=== PATIENT | female | born 1980 | race Caucasian/White ===

== ENCOUNTER 2021-02-08 23:34 | Emergency (ER) | payer SELFPAY ==
[~2021-02-08] VITALS: Ht 170.2 cm; Wt 73.5 kg
[2021-02-08 23:54] VITALS: BP 132/69
[2021-02-09] MEDS ORDERED: FLUORESCEIN SODIUM OPHTH 1 EA STRIP ONE (00:26)
[2021-02-09] MEDS ORDERED: TETRACAINE HCL 2% OPHTHALIC 30 ML BOTTLE EACHEYE ONE (00:30)
[2021-02-09] MEDS ORDERED: FLUORESCEIN SODIUM OPHTH 1 EA STRIP OP ONE (00:30)
[2021-02-09] MEDS ORDERED: ERYT3.5O9 EACHEYE (01:17)
== END 2021-02-09 01:39 | disposition home or self-care (01) ==
LOC: ER 23:37
DX: H10.9 Unspecified conjunctivitis (principal); Z79.2 Long term (current) use of antibiotics

== ENCOUNTER 2021-04-19 20:53 | Inpatient (IN) | payer MEDICAID, OTHER ==
[~2021-04-19] VITALS: Ht 170.2 cm; Wt 83.9 kg
[~2021-04-19 20:53] MED LIST: ERYT3.5O9 EACHEYE
--- NOTE | 2021-04-19 21:03 | NUR ---
PT AOX4. BIBRA FROM HOME C/O DIZZY X2 DAYS. PLACED IN BED 11 ON MONITOR AND PULSE OX. VSS. VOMITTED ARMED SECURITY PROFESSIONAL.
[2021-04-19] MEDS ORDERED: ONDANSETRON HCL/PF 4 MG/2 ML VIAL ONE (21:26)
[2021-04-19] MEDS ORDERED: IV NS 0.9% 1,000 ML BAG IV ONE (21:30)
[2021-04-19] MEDS ORDERED: MECLIZINE HCL 12.5 MG TABLET PO ONE (21:30)
[2021-04-19] MEDS ORDERED: ONDANSETRON HCL/PF 4 MG/2 ML VIAL IVP ONE (21:30)
[2021-04-19 21:36] LABS: BASOPHILS # (AUTO) 0.1 K/uL (0.0-0.2); BASOPHILS % (AUTO) 0.7 % (0.0-2.0); EOSINOPHILS % (AUTO) 0.4 % (0.0-6.0); HEMATOCRIT 39 % (33-45); HEMOGLOBIN 12.9 g/dL (11.5-14.8); LYMPHOCYTES % (AUTO) 21.7 % (20.0-44.0); MEAN CORPUSCULAR HGB CONC 34 g/dl (31.0-36.0); MEAN CORPUSCULAR VOLUME 86 fL (82-100); MONOCYTES # (AUTO) 0.5 K/uL (0.1-1.30); MONOCYTES % (AUTO) 5.6 % (2.0-12.0); NEUTROPHILS # (AUTO) 6.6 K/uL (1.8-8.9); NEUTROPHILS % (AUTO) 71.6 % (43.0-81.0); PLATELET COUNT (AUTO) 405 K/uL (150-450); RED BLOOD CELL COUNT(AUTO) 4.47 MIL/uL (4.0-5.2); WHITE BLOOD COUNT (AUTO) 9.2 K/uL (4.3-11.0)
[2021-04-19] MEDS ORDERED: MECLIZINE HCL 25 MG TABLET ONE (21:48)
[2021-04-19 21:56] LABS: CARBON DIOXIDE 24 mmol/L (21-32); CHLORIDE 100 mmol/L (98-107); CREATININE 0.7 mg/dL (0.6-1.3); GLUCOSE 122 mg/dL (74-106); POTASSIUM 3.6 mmol/L (3.5-5.1); SODIUM SERUM 131 mmol/L (136-145); UREA NITROGEN, BLOOD 17 mg/dL (7-18)
[2021-04-19] MEDS ORDERED: LORAZEPAM INJ 2 MG/ML VIAL IV ONE (23:00)
[2021-04-19] MEDS ORDERED: LORAZEPAM INJ 2 MG/ML VIAL ONE (23:06)
--- NOTE | 2021-04-19 23:47 | NUR ---
MRSA SWAB COLLECTED AND SENT TO LAB. PATIENT'S BELONGINGS LIST DONE.
[2021-04-20] MEDS ORDERED: Z GUARD REMEDY 4 OZ OINT TP PRN (00:30)
[2021-04-20] MEDS ORDERED: MAG HYDROX/AL HYDROX/SIMETH 30 ML UDC PO PRN (00:30)
[2021-04-20] MEDS ORDERED: MAGNESIUM HYDROXIDE 30 ML UDC PO PRN (00:30)
[2021-04-20] MEDS ORDERED: ACETAMINOPHEN 325 MG TABLET PO PRN (00:30)
[2021-04-20] MEDS ORDERED: MECLIZINE HCL 12.5 MG TABLET PO PRN (01:00)
--- NOTE | 2021-04-20 01:45 | NUR ---
REPORT GIVEN TO SHIRA AGARWAL FOR EMMANUEL
[2021-04-20 02:00] VITALS: BP 109/62
--- NOTE | 2021-04-20 02:00 | NUR ---
RN NOTE RECEIVED REPORT FROM STEFANO MARKHAM. RECEIVED A 40 YEAR OLD FEMALE FROM ER. PATIENT IS ALERT AND ORIENTED X4. ABLE TO MAKE NEEDS KNOWN. BREATHING EVEN AND UNLABORED. DENIES FEELING SOB AT THIS TIME, TOLERATING ROOM AIR AT 100 PERCENT OXYGEN SATURATION. DENIES CHEST PAIN. MAIN COMPLAINT IS DIZZINESS WHEN MOVING AROUND. DENIES FEELING NAUSEA. SKIN WARM AND DRY. NOTED WITH LEFT AC 20 G. FLUSHED WITH NS, NO INFILTRATION. SKIN ASSESSMENT DONE. DENIES PAIN. ABLE TO AMBULATE WITH ONE PERSON ASSISTANCE. NO ATAXIA NOTED. NON-SLIP SOCKS ON. PROVIDED FLUIDS FOR HYDRATION, OFFERED SNACKS. BED LOW, IN LOCKED POSITION, CALL LIGHT WITHIN REACH.
[2021-04-20] MEDS: IV NS 0.9% 1,000 ML IV PRN ×2 (02:08→14:18)
[2021-04-20 04:00] VITALS: BP 110/72
--- NOTE | 2021-04-20 06:08 | NUR ---
RN NOTE NO SIGNIFICANT CHANGES, PATIENT REMAINED STABLE. EPISODES OF DIZZINESS WHEN TURNING AND REPOSITIONING. ASSISTED TO THE RESTROOM TO URINATE UPON ADMISSION. PATIENT REMAINED ASLEEP SINCE THEN. NO COMPLAINTS OF PAIN. TOLERATED PO SNACKS. ALL NEEDS ATTENDED. KEPT CLEAN AND DRY. CALL LIGHT WITHIN REACH.
--- NOTE | 2021-04-20 07:55 | NUR ---
RN OPENING NOTES PATIENT AWAKE IN BED RESTING, A/O X4. NO S/S OF PAIN NOTED AT THIS TIME. PATIENT ON ROOM AIR, NO DISTRESS OR SHORTNESS OF BREATH. IV ACCESS RAC #20G INTACT, PATENT AND FLUSHING WELL. FALL AND SAFETY MEASURES IN PLACE, BED ALARM ON, BED IN LOW AND LOCK POSITION, CALL LIGHT AND TABLE WITHIN EASY REACH, SIDE RAILS UP X2. WILL CONTINUE TO MONITOR.
[2021-04-20 08:00] VITALS: BP 102/64
[2021-04-20] MEDS: PANTOPRAZOLE 40 MG VIAL IV SCH (08:58)
[2021-04-20] MEDS ORDERED: ERYTHROMYCIN BASE OPHTH 3.5 GM TUBE EACHEYE SCH (09:00)
[2021-04-20 16:00] VITALS: BP 117/68
--- NOTE | 2021-04-20 18:55 | NUR ---
RN CLOSING NOTES PATIENT AWAKE IN BED RESTING, A/O X4. NO S/S OF PAIN NOTED AT THIS TIME. PATIENT ON ROOM AIR, NO DISTRESS OR SHORTNESS OF BREATH. IV ACCESS LAC #20G INTACT, PATENT AND FLUSHING WELL. FALL AND SAFETY MEASURES IN PLACE, BED ALARM ON, BED IN LOW AND LOCK POSITION, CALL LIGHT AND TABLE WITHIN EASY REACH, SIDE RAILS UP X2. WILL ENDORSE TO HOSTESS HOST.
[2021-04-20 20:00] VITALS: BP 106/65
--- NOTE | 2021-04-20 20:00 | NUR ---
RN NOTE RECEIVED PT IN BED, RESTING, ALERT AND ORIENTED X4. DENIES ANY DIZZINESS, PAIN OR SOB AT THIS TIME. NS RUNNING AT 75ML/HR. IV SITE ON LAC PATENT AND INTACT. ALL SAFETY MEASURES MAINTAINED. CALL LIGHT WITHIN REACH, WILL CONTINUE TO MONITOR.
--- NOTE | 2021-04-21 01:08 | NUR ---
RN NOTE PT SLEEPING, AROUSES EASILY. MILD DIZZINESS NOTED, OFFERED MECLEZINE, PT REFUSED. WILL CONTINUE TO MONITOR.
[2021-04-21] MEDS: IV NS 0.9% 1,000 ML IV PRN ×2 (03:19→15:44)
[2021-04-21 04:00] VITALS: BP 106/62
--- NOTE | 2021-04-21 06:59 | NUR ---
RN NOTE PT REMAIN IN BED. NO SIGNIFICANT CHANGES WERE NOTED. PT DENIES ANY PAIN OR SOB. MILD DIZZINESS, TOLERABLE. CONTINUE ON IV FLUIDS, INFUSING WELL. WILL ENDORSE TO NEXT SHIFT NURSE FOR EMMANUEL.
[2021-04-21 07:11] LABS: BASOPHILS % (AUTO) 0.3 % (0.0-2.0); EOSINOPHILS % (AUTO) 1.5 % (0.0-6.0); HEMATOCRIT 36 % (33-45); HEMOGLOBIN 12.1 g/dL (11.5-14.8); LYMPHOCYTES # (AUTO) 2.8 K/uL (0.8-4.8); LYMPHOCYTES % (AUTO) 34.7 % (20.0-44.0); MEAN CORPUSCULAR HGB CONC 33 g/dl (31.0-36.0); MEAN CORPUSCULAR VOLUME 88 fL (82-100); MONOCYTES # (AUTO) 0.6 K/uL (0.1-1.30); MONOCYTES % (AUTO) 7.8 % (2.0-12.0); NEUTROPHILS # (AUTO) 4.5 K/uL (1.8-8.9); NEUTROPHILS % (AUTO) 55.7 % (43.0-81.0); PLATELET COUNT (AUTO) 352 K/uL (150-450); RED BLOOD CELL COUNT(AUTO) 4.14 MIL/uL (4.0-5.2)
--- NOTE | 2021-04-21 07:30 | NUR ---
RN OPENING NOTE PATIENT ASLEEP IN BED RESTING, A/O X4. NO S/S OF PAIN OR DISTRESS NOTED AT THIS TIME. PATIENT ON ROOM AIR, NO DISTRESS OR SHORTNESS OF BREATH. IV ACCESS LAC #20G INTACT, PATENT AND FLUSHING WELL RUNNING NS @75ML/HR. FALL AND SAFETY MEASURES IN PLACE, BED ALARM ON, BED IN LOW AND LOCK POSITION, CALL LIGHT AND TABLE WITHIN EASY REACH, SIDE RAILS UP X2. WILL CONTINUE TO MONITOR.
[2021-04-21 07:42] LABS: CALCIUM, SERUM 8.3 mg/dL (8.5-10.1); CREATININE 0.8 mg/dL (0.6-1.3); PHOSPHORUS 3.7 mg/dL (2.5-4.9); POTASSIUM 4.3 mmol/L (3.5-5.1)
[2021-04-21 08:00] VITALS: BP 114/75
[2021-04-21 08:01] LABS: THYROID STIMULATING HORMONE 0.761 uIU/mL (0.358-3.74)
[2021-04-21] MEDS: PANTOPRAZOLE 40 MG VIAL IV SCH (09:00)
[2021-04-21] MEDS: ONDANSETRON HCL/PF 4 MG/2 ML VIAL IVP PRN (10:08)
[2021-04-21 16:00] VITALS: BP 104/70
--- NOTE | 2021-04-21 18:48 | NUR ---
RN CLOSING NOTE PATIENT ASLEEP IN BED.PATIENT REMAINED STABLE THROUGHOUT SHIFT. RESTING, A/O X4. NO S/S OF PAIN OR DISTRESS NOTED AT THIS TIME. PATIENT BREATHING EVEN AND UNLABORED. PATIENT ON ROOM AIR, NO DISTRESS OR SHORTNESS OF BREATH. IV ACCESS LAC #20G INTACT, PATENT AND FLUSHING WELL RUNNING NS @75ML/HR. FALL AND SAFETY MEASURES IN PLACE, BED ALARM ON, BED IN LOW AND LOCK POSITION, CALL LIGHT AND TABLE WITHIN EASY REACH, SIDE RAILS UP X2. WILL ENDORSE TO PRODUCTION FLOATER RN.
[2021-04-21 20:00] VITALS: BP 101/58
[2021-04-22 04:00] VITALS: BP 103/60
[2021-04-22] MEDS: IV NS 0.9% 1,000 ML IV PRN ×2 (04:23→15:49)
--- NOTE | 2021-04-22 05:24 | NUR ---
RN notes Resting comfortably in bed with no distress noted. breathing even and unlabored. On room air tolerating well. Alert and oriented. Verbally able to communicate need. No complaint of pain or discomfort. Vital signs wnl. No significant change of condition. Kept clean and dry. Will endorse to next shift for continuity of care.
[2021-04-22 06:47] LABS: BASOPHILS % (AUTO) 0.4 % (0.0-2.0); EOSINOPHILS % (AUTO) 1.4 % (0.0-6.0); HEMATOCRIT 36 % (33-45); HEMOGLOBIN 12.4 g/dL (11.5-14.8); LYMPHOCYTES # (AUTO) 1.6 K/uL (0.8-4.8); LYMPHOCYTES % (AUTO) 17.9 % (20.0-44.0); MEAN CORPUSCULAR HGB CONC 34 g/dl (31.0-36.0); MEAN CORPUSCULAR VOLUME 88 fL (82-100); MONOCYTES # (AUTO) 0.3 K/uL (0.1-1.30); MONOCYTES % (AUTO) 3.8 % (2.0-12.0); NEUTROPHILS # (AUTO) 6.8 K/uL (1.8-8.9); NEUTROPHILS % (AUTO) 76.5 % (43.0-81.0); PLATELET COUNT (AUTO) 354 K/uL (150-450); RED BLOOD CELL COUNT(AUTO) 4.14 MIL/uL (4.0-5.2)
[2021-04-22 06:53] LABS: CALCIUM, SERUM 8.3 mg/dL (8.5-10.1); CREATININE 0.8 mg/dL (0.6-1.3); POTASSIUM 4.5 mmol/L (3.5-5.1)
--- NOTE | 2021-04-22 07:32 | NUR ---
RN OPENING NOTES Patient seen comfortably lying in bed, no SOB, no apparent distress noted, breathing even and unlabored, denies any pain or discomfort at this time, no grimacing. Call light left within reach, safety precautions in place, brakes locked, side rails up X 2, will monitor closely for any changes.
[2021-04-22 08:00] VITALS: BP 115/56
[2021-04-22] MEDS: PANTOPRAZOLE 40 MG VIAL IV SCH (08:00)
[2021-04-22 12:00] VITALS: BP 109/59
[2021-04-22] MEDS: ONDANSETRON HCL/PF 4 MG/2 ML VIAL IVP PRN (14:01)
[2021-04-22 16:00] VITALS: BP 105/64
--- NOTE | 2021-04-22 16:54 | NUR ---
ms rn note per dr hylton neurologist place order prednisolone 50 ml po daily and will be discharge most likely tomorrow
--- NOTE | 2021-04-22 18:24 | NUR ---
RN CLOSING NOTES Patient lying in bed, no apparent distress noted, no shortness of breath, breathing even and unlabored, denies any pain or discomfort, no grimacing, and remained afebrile, no dizziness, no palpitations, no chest pain during shift. All medications given per MD order, tolerating well. Anti-nausea medication given per MD order as needed, noted with help. Abdominal bowel sound present in all quadrant, no grimacing when abdomen palpated. Aspiration precautions observed at all times, kept head of bed elevated, all needs anticipated, kept clean and dry, safety precautions in place, frequent visual checks rendered, side rails up X 2, brakes locked, call light left within reach, will endorse to next shift for continuity of care.
--- NOTE | 2021-04-22 19:00 | NUR ---
RN NOTE REPORT RECEIVED FROM JEOVANY AGARWAL, PATIENT IN BED, AO X 4 IN NO ACUTE DISTRESS, RESPIRATIONS UNLABORED, SATURATION AT 97% ON ROOM AIR, HR IS 71. IV LINE IN PLACE AT LAC 20G WITH NS INFUSING AT 75 ML/HR. PER JEOVANY AGARWAL, PATIENT WAS SEEN BY DR JOYCE TODAY, PATIENT AGREED TO STAY ADMITTED AND START PREDNISONE 50 MG TOMORROW. HOWEVER, PATIENT CHANGED HER MIND AND WANTED TO GO HOME TONIGHT AGAINTS MEDICAL ADVICE. DR MCMILLAN WAS NOTIFIED, AND ACKNOWLEDGED. CHILDCARE DIRECTOR HORACE AGARWAL AND CEMENT CAR DUMPER HEENA WAS MADE AWARE. IV LINE REMOVED ASEPTICALLY, SITE BENIGN WITH NO BLEEDING NOTED. PATIENT SIGN AMA FORM AND ALL BELONGINGS ACCOUNTED FOR. PATIENT AMBULATORY, LEFT IN STABLE CONDITION, ACCOMPANIED BU .
--- NOTE | 2021-04-22 19:10 | NUR ---
STEFANO NOTE RISK INCIDENT REPORT FILLED OUT AND SUBMITTED. BREAKER MACHINE OPERATOR AWARE Addendum: 04/22/21 at 2033 by AWILDA MELLO RN reference no./unique ID: [id number]
[2021-04-22 19:30] VITALS: BP 115/64
[2021-04-23] MEDS ORDERED: PANTOPRAZOLE 40 MG TABLET.DR PO SCH (07:30)
[2021-04-23] MEDS ORDERED: prednisoLONE SOLUTION 15 MG/5 ML UDC PO SCH (09:00)
== END 2021-04-22 20:31 | disposition left against medical advice (07) | DRG 54 ==
LOC: ER 20:55 → TELE1 04-20 00:45 → MEDSG1 04-20 05:10
PROVIDERS: ADMIT Student in an Organized Health Care Education/Training Program; ATTEND Student in an Organized Health Care Education/Training Program
DX: G43.109 Migraine with aura, not intractable, without status migrainosus (principal); E87.1 Hypo-osmolality and hyponatremia; H81.399 Other peripheral vertigo, unspecified ear; Z20.822 Contact with and (suspected) exposure to COVID-19; Z53.29 Procedure and treatment not carried out because of patient's decision for other reasons; G47.00 Insomnia, unspecified
CPT/HCPCS: 36415; 70450-TC; 80048-TC; 83735-TC; 84100-TC; 84443-TC; 84484-TC; 84702-TC; 85025-TC; 87081-TC; 93307-TC; 93880-TC; 97116-TC; 97530-TC; C9113; C9803; G0378; J2060; J2405; J7030; J7510; J8597

== ENCOUNTER 2021-10-05 20:37 | Emergency (ER) | payer MEDICAID, OTHER ==
[~2021-10-05] VITALS: Ht 170.2 cm; Wt 77.1 kg
--- NOTE | 2021-10-05 21:00 | NUR ---
BIBRA 839 C/O HEADACHE NAUSEA/+VOMITING HX OF VERTIGO -ABD PAIN. PLACED ON BED, AAOX4, IN PAIN 11/28, BREATHING EVEN AND UNLABORED SATURATING AT 99%RA.
--- NOTE | 2021-10-05 21:29 | NUR ---
AT BED SIDE
--- NOTE | 2021-10-05 21:45 | NUR ---
BLOOD DRAWN AND SENT TO LAB
[2021-10-05] MEDS ORDERED: diphenhydrAMINE HCL 50 MG/ML VIAL ONE (21:50)
[2021-10-05] MEDS ORDERED: PROCHLORPERAZINE EDISYLATE 10 MG/2 ML VIAL ONE (21:50)
[2021-10-05 21:57] LABS: BASOPHILS % (AUTO) 0.5 % (0.0-2.0); EOSINOPHILS % (AUTO) 0.2 % (0.0-6.0); HEMATOCRIT 38 % (33-45); LYMPHOCYTES % (AUTO) 10.5 % (20.0-44.0); MEAN CORPUSCULAR HGB CONC 34 g/dl (31.0-36.0); MEAN CORPUSCULAR VOLUME 84 fL (82-100); MONOCYTES # (AUTO) 0.4 K/uL (0.1-1.30); MONOCYTES % (AUTO) 4.3 % (2.0-12.0); NEUTROPHILS # (AUTO) 8.4 K/uL (1.8-8.9); NEUTROPHILS % (AUTO) 84.5 % (43.0-81.0); PLATELET COUNT (AUTO) 394 K/uL (150-450); RED BLOOD CELL COUNT(AUTO) 4.55 MIL/uL (4.0-5.2); WHITE BLOOD COUNT (AUTO) 9.9 K/uL (4.3-11.0)
[2021-10-05] MEDS ORDERED: PROCHLORPERAZINE EDISYLATE 10 MG/2 ML VIAL IVP ONE (22:00)
[2021-10-05] MEDS ORDERED: diphenhydrAMINE HCL 50 MG/ML VIAL IV ONE (22:00)
[2021-10-05 22:08] LABS: CALCIUM, SERUM 9.1 mg/dL (8.5-10.1); CREATININE 0.7 mg/dL (0.6-1.3); POTASSIUM 3.7 mmol/L (3.5-5.1)
--- NOTE | 2021-10-05 23:10 | NUR ---
PATIENT TAKEN TO CT VIA [facility]
[2021-10-05] MEDS ORDERED: METO-295 PO (23:53)
[2021-10-05] MEDS ORDERED: IBUP-1957 PO (23:53)
[2021-10-06] MEDS ORDERED: KETOROLAC TROMETHAMINE INJ 30 MG/ML VIAL IV ONE
[2021-10-06] MEDS ORDERED: KETOROLAC TROMETHAMINE 15 MG/ML VIAL ONE
[2021-10-06] MEDS ORDERED: IV NS 0.9% 1,000 ML IV ONE
[2021-10-06 00:09] VITALS: BP 126/70
--- NOTE | 2021-10-06 00:09 | NUR ---
Patient discharged to home in stable condition. Written and verbal after care instructions given. Patient verbalizes understanding of instruction.
== END 2021-10-06 00:09 | disposition home or self-care (01) ==
LOC: ER 20:42
DX: R51.9 Headache, unspecified (principal); R11.2 Nausea with vomiting, unspecified; Z79.899 Other long term (current) drug therapy
CPT/HCPCS: 99284; 96374; 70450; 96375 ×2; 85025; 80048; 36415; 84702; 96361; J0780; J1200; A6403; J7030; J1885